=== PATIENT | female | born 1935 | race Caucasian/White ===

== ENCOUNTER → 2018-08-17 | Outpatient (CLI) | payer MEDICARE ==
[~2018-08-17] MED LIST: ACET-709 PO; ALBU8.5H8 INH; ALPR-475 PO; BUPR150T20 PO; BUPR150T73 PO; CARV3.122 PO; CELE200C PO; CLON0.5T11 PO; ESCI20TA10 PO; GABA-826 PO; HYDR1TAB14 PO; IRON15TA3 PO; OMEP20CA9 PO; RIZA10TA20 PO; SIMV40TA3 PO; VITA1CAP PO; WARF2TAB PO; ZOLP5TAB6 PO; [UNRECOGNIZED DRUG - OTHER] PO
== END | disposition home or self-care (01) ==
LOC: CFH 10:27
PROVIDERS: ATTEND Family Medicine
DX: M17.12 Unilateral primary osteoarthritis, left knee (principal); M25.462 Effusion, left knee